=== PATIENT | female | born 1960 | race Caucasian/White ===

== ENCOUNTER → 2017-07-29 | Outpatient (CLI) | payer OTHER ==
[2017-08-01 12:22] LABS: HPV Genotype 16 Not Detected (NOTDET); HPV Genotype 18 Not Detected (NOTDET)
[2017-08-05 10:09] LABS: HPV High Risk Other Not Detected (NOTDET)
== END | disposition home or self-care (01) ==
LOC: LAB SHORT 11:49 → OLS 11:49
PROVIDERS: Nurse Practitioner Women's Health
DX: Z12.4 Encounter for screening for malignant neoplasm of cervix (principal)
CPT/HCPCS: 87624; G0123

== ENCOUNTER 2019-03-12 07:46 | Day surgery (SDC) | payer OTHER ==
[2019-03-15 12:59] LABS: Performing Lab SYMBIODX; Test Name HER2 FISH
== END 2019-03-12 22:56 | disposition home or self-care (01) ==
LOC: MOI US 07:46 → MOI MAM 08:00 → MOI US 22:56
PROVIDERS: Nurse Practitioner Family
DX: C50.911 Malignant neoplasm of unspecified site of right female breast (principal); Z17.0 Estrogen receptor positive status [ER+]
CPT/HCPCS: 19083; 77065; 88305; 88342; 88360; A4648

== ENCOUNTER 2019-11-12 12:48 | Day surgery (SDC) | payer OTHER ==
[~2019-11-12] VITALS: Ht 167.6 cm; Wt 93.5 kg
[2019-11-12] MEDS ORDERED: HYDSUL200 PO (13:15)
[2019-11-12] MEDS ORDERED: ANASTROZOLE5 GM MC (13:16)
[2019-11-12] MEDS ORDERED: SUMA25 PO (13:16)
[2019-11-12] MEDS ORDERED: HYDACE25S PR (13:16)
== END 2019-11-12 14:21 | disposition home or self-care (01) ==
LOC: ORSCSDS 12:48
PROVIDERS: Internal Medicine Gastroenterology
PROC: 0DBL8ZX Excision of Transverse Colon, Via Natural or Artificial Opening Endoscopic, Diagnostic (ICD-10-PCS; principal; 2019-11-12 14:15)
PROC: 0DBP8ZX Excision of Rectum, Via Natural or Artificial Opening Endoscopic, Diagnostic (ICD-10-PCS; principal; 2019-11-12 14:15)
DX: K62.5 Hemorrhage of anus and rectum (principal); D12.3 Benign neoplasm of transverse colon; K57.30 Diverticulosis of large intestine without perforation or abscess without bleeding; F41.9 Anxiety disorder, unspecified; E66.9 Obesity, unspecified; Z68.33 Body mass index [BMI] 33.0-33.9, adult; K63.89 Other specified diseases of intestine; K64.8 Other hemorrhoids; K64.4 Residual hemorrhoidal skin tags; Z79.899 Other long term (current) drug therapy
CPT/HCPCS: 88305; J2704; J7120